=== PATIENT | female | born 1970 | race American Indian/Alaskan Native ===

== ENCOUNTER 2020-09-27 06:25 | Day surgery (SDC) | payer BC, OTHER ==
[2020-09-20 12:54] LABS: Hematocrit 45.7 % (30.3-42.9); Hemoglobin 14.6 gm/dl (10.1-14.3); Mean Corpuscular HGB Conc 32 % (30-34); Mean Corpuscular Volume 75 fl (79-97); Platelet Count 178 K/mm3 (140-440); Red Blood Count 6.09 M/mm3 (3.65-5.03); Red Cell Distribution Width 16.4 % (13.2-15.2)
--- NOTE | 2020-09-20 13:12 | Anesthesia Consultation ---
Anesthesia Consult and Med Hx Date of service: 09/27/20 - Airway Anesthetic Teeth Evaluation: Good ROM Head & Neck: Adequate Mental/Hyoid Distance: Adequate Mallampati Class: Class III Intubation Access Assessment: Possibly Difficult - Pulmonary Exam CTA: Yes - Cardiac Exam Cardiac Exam: RRR - Pre-Operative Health Status ASA Pre-Surgery Classification: ASA2 Proposed Anesthetic Plan: General - Pulmonary Hx Smoking: No Hx Respiratory Symptoms: No - Cardiovascular System Hx Hypertension: Yes Hx Heart Attack/AMI: No Hx Percutaneous Transluminal Coronary Angioplasty (PTCA): No - Central Nervous System CVA: No - Gastrointestinal Hx Gastroesophageal Reflux Disease: No - Endocrine Hx Renal Disease: No Hx Insulin Dependent Diabetes: Yes (w/ insulin pump; basal rate ranges 1.85 - 2.05 u/hr) Hx Hypothyroidism: Yes (s/p thyroidectomy; currently on synthroid) - Other Systems 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
[2020-09-20 14:02] LABS: Blood Urea Nitrogen 11 mg/dL (7-17); Calcium 8.9 mg/dL (8.4-10.2); Hemolysis Index 15
[2020-09-20 14:03] LABS: BUN/Creatinine Ratio 16
[~2020-09-27 06:25] MED LIST: ACETAMINOPHEN 500 MG TAB PO SCH; CELECOXIB 200 MG CAP PO NR; GABAPENTIN 300 MG CAP PO NR; LACTATED RINGERS 1,000 ML IV SCH; MIDAZOLAM 2 MG/2 ML INJ IV NR; ceFAZolin/Water 2 GM/20 ML 2 GM/20 ML SYRINGE IV NR
[2020-09-27] MEDS ORDERED: ONDANSETRON 4 MG/2 ML INJ IV PRN (07:32)
[2020-09-27] MEDS ORDERED: HYDROmorphone 1 MG/1 ML INJ IV PRN ×2 (07:32)
--- NOTE | 2020-09-27 07:33 | Anesthesia Day of Surgery ---
Anesthesia Day of Surgery - Day of Surgery Patient Examined: Yes Patient H&P Reviewed: Yes Patient is NPO: Yes
[2020-09-27] MEDS ORDERED: LIDOCAINE (1%) 10 MG/1 ML VIAL 20 ML MDV ONE ×2 (07:34→09:48)
[2020-09-27] MEDS ORDERED: ceFAZolin/STERILE WATER 2 GM/20 ML SYRINGE IV NR (08:00)
[2020-09-27] MEDS ORDERED: BUPIVACAINE/PF (0.25%) 2.5 MG/ML 30 ML VIAL INFILTRATI ONE ×2 (09:48→10:34)
[2020-09-27] MEDS ORDERED: DEXTROSE 50% IN WATER (25GM) 50 ML SYRINGE IV ONE (09:50)
[2020-09-27] MEDS ORDERED: LIDOCAINE (1%) 10 MG/1 ML VIAL 20 ML MDV INFILTRATI ONE (10:34)
[2020-09-27] MEDS ORDERED: TRIAMCINOLONE 40 MG/1 ML INJ ONE (11:03)
[2020-09-27] MEDS ORDERED: SODIUM CHLORIDE 0.9% IRR 1,500 ML BOTTLE IR ONE (11:15)
[2020-09-27] MEDS ORDERED: TRIAMCINOLONE 40 MG/1 ML INJ IM ONE (11:23)
[2020-09-27] MEDS ORDERED: fentaNYL 100 MCG/2 ML INJ ONE (11:31)
[2020-09-27] MEDS ORDERED: propofoL 200 MG/20 ML VIAL IV ONE (11:31)
[2020-09-27] MEDS ORDERED: LIDOCAINE MPF (2%) 20 MG/1 ML VIAL 5 ML ONE (11:33)
[2020-09-27] MEDS ORDERED: PHENYLEPHRINE/NS 1,000 MCG/10 ML SYRINGE (OR USE) IV ONE (11:33)
[2020-09-27] MEDS ORDERED: dexAMETHasone 20 MG/5 ML VIAL ONE (11:33)
[2020-09-27] MEDS ORDERED: GLYCOPYRROLATE 0.4 MG/2 ML INJ ONE (11:33)
[2020-09-27] MEDS ORDERED: ONDANSETRON 4 MG/2 ML INJ ONE (11:33)
--- NOTE | 2020-09-27 12:30 | Short Stay Summary ---
Short Stay Documentation Date of service: 09/27/20 - History H&P: obtained from office - Allergies and Medications Current Medications: Allergies pineapple Allergy (Verified 09/19/20 12:24) Nausea shellfish derived Allergy (Verified 09/19/20 12:24) Nausea Home Medications Medication Instructions Recorded Confirmed Last Taken Type Insulin Lispro [HumaLOG VIAL] 2 units SQ Q1H 02/08/15 09/19/20 02/14/15 11:08 History Levothyroxine [Synthroid] 125 mcg PO QAM 02/08/15 09/27/20 09/27/20 05:00 History Lisinopril/Hydrochlorothiazide 1 tab PO QDAY 02/08/15 09/27/20 09/26/20 18:00 History [Zestoretic 20-12.5 mg] Phentermine/Topiramate [Qsymia 1 each PO QDAY 02/08/15 09/19/20 09/12/20 History 11.25 mg-69 mg] Liraglutide [Victoza 2-Fam] 0.6 mg SQ QDAY 09/19/20 09/27/20 09/26/20 08:00 History Rosuvastatin Calcium [Crestor] 10 mg PO HS 09/19/20 09/27/20 09/25/20 20:00 History Ibuprofen [Motrin 800 MG tab] 800 mg PO Q8HR PRN #10 tablet 09/27/20 Unknown Rx Active Medications Acetaminophen (Acetaminophen 500 Mg Tab) 1,000 mg PO PREOP TAM Stop: 09/27/20 23:59 Last Admin: 09/27/20 07:15 Dose: 1,000 mg Documented by: Cefazolin Sodium (Cefazolin/Sterile Water 2 Gm/20 Ml Syringe) 2 gm IV PREOP NR Stop: 09/27/20 21:00 Celecoxib (Celecoxib 200 Mg Cap) 200 mg PO PREOP NR Stop: 09/27/20 23:59 Last Admin: 09/27/20 07:15 Dose: 200 mg Documented by: Gabapentin (Gabapentin 300 Mg Cap) 300 mg PO PREOP NR Stop: 09/27/20 23:59 Last Admin: 09/27/20 07:15 Dose: 300 mg Documented by: Hydromorphone HCl (Hydromorphone 1 Mg/1 Ml Inj) 0.25 mg IV Q10MIN PRN PRN Reason: Pain, Moderate (4-6) Stop: 09/27/20 23:00 Hydromorphone HCl (Hydromorphone 1 Mg/1 Ml Inj) 0.5 mg IV Q10MIN PRN PRN Reason: Pain , Severe (7-10) Stop: 09/27/20 23:00 Lactated Ringer's (Lactated Ringers) 1,000 mls @ 100 mls/hr IV DIRECT TAM Stop: 09/27/20 23:59 Last Admin: 09/27/20 08:10 Dose: 100 mls/hr Documented by: Midazolam HCl (Midazolam 2 Mg/2 Ml Inj) 2 mg IV PREOP NR Stop: 09/27/20 23:59 Ondansetron HCl (Ondansetron 4 Mg/2 Ml Inj) 4 mg IV ONCE PRN PRN Reason: Nausea And Vomiting Stop: 09/27/20 18:00 - Brief post op/procedure progress note Date of procedure: 09/27/20 Pre-op diagnosis: Left breast mass upper outer quadrant Post-op diagnosis: same Procedure: Left breast mass needle localization excisional biopsy Anesthesia: GETA Findings: Left wire and clip present within radiograph specimen Surgeon: CALEB EARL Estimated blood loss: minimal Pathology: list Specimen disposition: to lab Condition: stable - Disposition Condition at discharge: Good Disposition: DC- TO HOME OR SELFCARE Short Stay Discharge Plan Activity: other (no heavy lifting) Diet: regular Wound: keep clean and dry (may shower in 48 hours; wear breast binder; no baths) Follow up with: CALEB EARL MD [Staff Physician] - 7 Days Forms: Outpatient Surgery DC Inst. Prescriptions: Ibuprofen [Motrin 800 MG tab] 800 mg PO Q8HR PRN #10 tablet PRN Reason: Pain , Severe (7-10)
--- NOTE | 2020-09-27 12:33 | Operative Report ---
Operative Report Operative Report: Operative Report: September 27, 2020 Preoperative diagnosis: Left breast retroareolar mass of the upper outer quadrant Postoperative diagnosis: Same Procedure: Left breast mass needle localization excisional biopsy Surgeon: Chasity Londono MD Tax Record Clerk: Juhi Villaseñor MD Anesthesia: General Findings: Left wire and clip present within radiograph specimen Complications: None EBL: Minimal (less than 25 cc) Disposition: PACU in good condition Indications for operative procedure: This is a 50 year old lady with recent abnormal left breast ultrasound findings of a probable intraductal mass of upper outer quadrant retroareolar. Left breast ultrasound guided needle core biopsy performed with findings of benign breast tissue and discordant pathology. Recommendations are to proceed with left breast mass excisional biopsy to rule out malignancy given breast cancer risk association. She wished to proceed with the above procedure. Procedure in detail: The patient was taken to radiology for wire placement for localization known area of concern. Patient was then taken to the operating room. Gen. anesthesia was administered. Left breast and axilla were prepped and draped in the normal sterile operative fashion. The wire was identified around 3:00 position 3 cm FN. Timeout was performed. Ultrasound used as well to localize area of excision. Attention was then taken towards the left breast. A 3:00 periareolar breast incision was made with a 15 blade knife and dissection taken down to subcutaneous tissues. First began raising of the anterior flap with removal of the wire from the skin with careful dissection performed to ensure maintain vascuarlity of the nipple, dissection was taken down posteriorly past the wire, followed by raising of the superior flap, inferior flap and medial flap with all flaps taken down posteriorly past the wire. The breast area of concern was appropriately removed posteriorly with the aid of the Bovie cautery. Area of concern noted for vascularity. The wire was not encountered. Specimen was marked and then sent to pathology and radiology; radiograph specimen with wire and clip present. Breast cavity was irrigated and hemostasis was obtained. Breast cavity was anesthesized wtih 1% lidocained mixed with quarter percent marcaine without epinephrine. The posterior deep breast tissues were approximated and closed using interrupted 3-0 Vicryl. The subcutaneous tissues were approximated and closed using interrupted 3-0 Vicryl followed by closing of the skin with a running 4-0 Monocryl and skin affix. Kenalog was then injected at the incision. The patient tolerated surgery very well and she was awaken from anesthesia without any complication and transported to PACU in good condition.
[2020-09-27 14:06] VITALS: BP 145/70
--- NOTE | 2020-09-27 15:59 | Mammography Report ---
MAMMOGRAPHY GUIDED WIRE LOCALIZATION OF THE LEFT BREAST LEFT BREAST SPECIMEN RADIOGRAPH, 09/27/2020 INDICATION: Localization of left breast target lesion: . COMPARISON: 09/08/2020 TECHNIQUE / FINDINGS: MAMMOGRAPHY GUIDED LOCALIZATION: Preliminary mammography of the breast demonstrated no significant in terval change compared to prior imaging. The anticipated needle entry site was marked, prepped and d raped in the usual sterile fashion. A timeout was performed confirming the patients name, date of bir th and the procedure to be performed. The skin was anesthetized with 1% lidocaine. A 20 gauge localiz ation needle was inserted through the target lesion. A localization wire was then deployed through t he needle, and the needle was removed. Appropriate positioning of the wire was confirmed. The patien t tolerated the procedure well without immediate complication. The wire was secured to the skin with a sterile dressing. SPECIMEN RADIOGRAPH: The previously localized target lesion is present in its entirety in the submitt ed specimen. The localization wire is present. IMPRESSION: 1. Technically successful mammography guided breast wire localization. 2. Radiographic evidence of satisfactory excision of the left breast lesion. Signer Name: Yoel Ochoa Jr, MD Signed: 09/27/2020 3:54 PM Workstation Name: [id number]
== END 2020-09-27 13:55 | disposition home or self-care (01) ==
LOC: OR 06:25
PROVIDERS: ATTEND Surgery
DX: N63.21 Unspecified lump in the left breast, upper outer quadrant (principal); Z20.822 Contact with and (suspected) exposure to COVID-19; E11.9 Type 2 diabetes mellitus without complications; E78.5 Hyperlipidemia, unspecified; I10 Essential (primary) hypertension; E03.9 Hypothyroidism, unspecified; Z72.89 Other problems related to lifestyle; Z91.013 Allergy to seafood; Z88.8 Allergy status to other drugs, medicaments and biological substances; Z98.42 Cataract extraction status, left eye; Z98.41 Cataract extraction status, right eye; Z98.891 History of uterine scar from previous surgery; Z98.890 Other specified postprocedural states
CPT/HCPCS: 19125; 19281; 36415; 76098; 80048; 82962; 85027; 88307; A4648; J0690; J1100; J2370; J2405; J2704; J3010; J3301; J7120; U0003